=== PATIENT | male | born 1990 | race Caucasian/White ===

== ENCOUNTER → 2016-06-17 | Outpatient (CLI) | payer OTHER ==
--- NOTE | 2016-06-17 17:19 | US ---
EXAMINATION TYPE: US liver DATE OF EXAM: 06/17/2016 4:02 PM COMPARISON: CT 2012 CLINICAL HISTORY: R74.8 ABN LEVELS OF OTHER SERUM ENZYMES. EXAM MEASUREMENTS: Liver Length: 12.6 cm Gallbladder Wall: 0.1 cm CBD: 0.3 cm Right Kidney: 10.1 X 3.7 X 4.7 cm Pancreas: Obscured by bowel gas ,portions seen wnl Liver: wnl Gallbladder: wnl Evidence for sonographic Guevara's sign: No CBD: wnl Right Kidney: wnl IMPRESSION: No Distinct abnormality seen.
== END | disposition home or self-care (01) ==
LOC: RADUSWWP 15:34
PROVIDERS: ATTEND Family Medicine
DX: R74.8 Abnormal levels of other serum enzymes (principal)
CPT/HCPCS: 76705